=== PATIENT | male | born 1995 | race Caucasian/White ===

== ENCOUNTER → 2017-04-18 | Outpatient (CLI) | payer OTHER ==
[~2017-04-18] MED LIST: ACNE MEDICATION; AMOXICILLIN PO; BENTYL20 MG PO; CEFAZOLIN SODI; CEFDINIR300 M2 PO; FLINTSTONES T100 MCG; FLUVOXAMINE MAL25 MG PO; FLUVOXAMINE PO; IMITREX; IMITREX PO; IMITREX50 MG PO; KEFLEX500 MG PO; MIGRAINE MED PO; MINOCIN50 MG PO; NORCO 7.5-3251 EACH PO; NORCO1 TAB 10/3 PO; PREDNISONE PO; PREVACID PO; PRILOSEC PO; PROPRANOLOL HCL80 M1 PO; STRATTERA; TRIAMCINOLONE AC1 GM EXT; TRILEPTAL PO; TRILEPTAL300 MG PO; ZITHROMAX PO; ZITHROMAX500 MG PO; ZOFRAN; ZOFRAN ODT4 MG/UDTAB PO; ZOLOFT; [UNRECOGNIZED DRUG - OTHER]; [UNRECOGNIZED DRUG - REMARK] PO
[2017-04-18 15:55] LABS: BASOPHIL# 0.1 X10e3 (0-0.3); BASOPHIL% 0.7 % (0-2.5); EOSINOPHIL# 0.1 X10e3 (0-0.7); EOSINOPHIL% 1.4 % (0.0-7.0); HEMOGLOBIN 14.1 gm/dL (13.0-16.0); LYMPHOCYTE# 2.4 X10e3 (1.0-3.5); LYMPHOCYTE% 32.4 % (17.0-45.0); MEAN CELL VOLUME 85.9 FL (83-96); MEAN CORPUSCULAR HEMOGLOBIN 29.6 PG (28-34); MEAN CORPUSCULAR HGB CONC 34.5 g/dL (30-36); MEAN PLATELET VOLUME 6.9 FL (6.5-11.5); MONOCYTE# 0.6 X10e3 (0-1.0); MONOCYTE% 8.3 % (3.0-12.0); NEUTROPHIL# 4.2 X10e3 (1.5-7.1); NEUTROPHIL% 57.2 % (40-75); PLATELET COUNT 277 X10e3 (140-420); RED BLOOD COUNT 4.78 X10e (3.90-5.60); RED CELL DISTRIBUTION WIDTH 13.4 % (11.0-15.5); WHITE BLOOD COUNT 7.4 X10e3 (4.0-10.5)
[2017-04-18 15:58] LABS: DIFF IND NO
[2017-04-18 16:11] LABS: ALBUMIN SERUM 4.6 g/dL (3.5-5.0); BILIRUBIN,TOTAL 1.1 mg/dL (0.2-2.0); CALCIUM SERUM 9.6 mg/dL (8.4-10.2); GLOM FILT RATE Estimated 107.9 mL/min (>60); POTASSIUM 4.3 mmol/L (3.5-5.1); PROTEIN TOTAL SERUM 8.2 g/dL (6.0-8.3)
== END | disposition home or self-care (01) ==
LOC: CLAB 15:28
PROVIDERS: Internal Medicine
DX: K21.9 Gastro-esophageal reflux disease without esophagitis (principal); R13.10 Dysphagia, unspecified
CPT/HCPCS: 80053; 85025